=== PATIENT | female | born 1975 | race Caucasian/White ===

== ENCOUNTER 2025-01-06 12:47 | Outpatient (CLI) | payer OTHER, SELFPAY ==
--- NOTE | 2025-01-06 13:00 | CRLHL7_ITS ---
For Patients: As a result of the Century Cures Act, medical imaging exams and procedure reports are released immediately into your electronic medical record. You may view this report before your referring provider. If you have questions, please contact your health care provider. INDICATION: Lumbar radiculopathy. TECHNIQUE: Multisequence multiplanar MRI of the lumbar spine without the use of intravenous contrast. COMPARISON: MRI lumbar spine dated 04/05/2021. FINDINGS: Normal lumbar lordosis. Stable minimal chronic depression of the L3 superior endplate. Bone marrow signal intensity is within normal limits. There is mild multilevel disc desiccation and height loss. The conus medullaris terminates normally at the L1-L2 level. The paraspinal soft tissues are unremarkable. T12-L1: No significant spinal canal or neural foraminal stenosis. L1-L2: Shallow symmetric disc bulge. No significant spinal canal or neural foraminal stenosis. L2-L3: Shallow symmetric disc bulge. No significant spinal canal or neural foraminal stenosis. L3-L4: Shallow symmetric disc bulge. No significant spinal canal or neural foraminal stenosis. L4-L5: Shallow symmetric disc bulge. Mild facet joint arthrosis. No significant spinal canal neural foraminal stenosis. L5-S1: Slight increased size of a 5 mm central disc protrusion. No high-grade spinal canal or significant neural foraminal stenosis. IMPRESSION: 1. At L5-S1, slight increased size of a small 5 mm central disc protrusion. 2. Mild lumbar spondylosis at the remaining levels without significant spinal canal or neural foraminal stenosis. Dictated by Phillip Becker MD @ 01/06/2025 9:41:22 PM (Electronically Signed)
== END 2025-01-06 12:48 | disposition home or self-care (01) ==
LOC: MRI 12:49
PROVIDERS: PCP Family Medicine; Visit Provider Family Medicine
DX: M54.16 Radiculopathy, lumbar region (principal); M51.26 Other intervertebral disc displacement, lumbar region; M47.896 Other spondylosis, lumbar region; M54.50 Low back pain, unspecified
CPT/HCPCS: 72148

== ENCOUNTER 2025-03-26 13:15 | Outpatient (RCR) | payer OTHER, SELFPAY | END 2025-07-13 11:28 | disposition home or self-care (01) | PROVIDERS: PCP Family Medicine; Visit Provider Family Medicine | DX: M54.16 Radiculopathy, lumbar region (principal); M54.50 Low back pain, unspecified; G89.29 Other chronic pain; Z51.89 Encounter for other specified aftercare | CPT/HCPCS: 97110; 97140; 97162 ==